=== PATIENT | female | born 1985 | race American Indian/Alaskan Native ===

== ENCOUNTER 2016-08-05 15:31 | Emergency (ER) | payer OTHER ==
[2016-08-05 15:46] VITALS: BMI 35.5
[2016-08-05] MEDS ORDERED: ceFAZolin 1 GM in Sodium Chloride 0.9% 100 ML IVPB STA (16:42)
[2016-08-05] MEDS ORDERED: Lactated Ringer's 1,000 ML IV SCH (16:45)
[2016-08-05 17:42] LABS: BASO % 0.2 % (0.0-2.0); EOS % 0.2 % (0.0-4.0); HEMATOCRIT 27.3 % (34.0-47.0); LYMPH # 1.4 K/uL (1.0-4.3); LYMPH % 15.2 % (20.0-40.0); MEAN CELL VOLUME 64.9 fl (81.0-99.0); MEAN CORPUSCULAR HEMOGLOBIN 19.6 pg (27.0-31.0); MEAN CORPUSCULAR HGB CONC 30.3 g/dL (33.0-37.0); MEAN PLATELET VOLUME 8.2 fl (7.2-11.7); MONO # 0.7 K/uL (0.0-0.8); MONO % 7.2 % (0.0-10.0); NEUT # 7.2 K/uL (1.8-7.0); NEUT % 77.2 % (50.0-75.0); NRBC % 0.2 % (0.0-0.0); RED CELL DISTRIBUTION WIDTH 19.7 % (11.5-14.5); WHITE BLOOD COUNT 9.3 K/uL (4.8-10.8)
[2016-08-05 17:47] LABS: ALB/GLOB RATIO 0.9 (1.0-2.1); ALKALINE PHOSPHATASE 97 U/L (38-126); ALT/SGPT 21 U/L (9-52); AMYLASE 91 U/L (30-110); AST/SGOT 36 U/L (14-36); BILIRUBIN,TOTAL 0.5 mg/dl (0.2-1.3); BLOOD UREA NITROGEN 8 mg/dl (7-17); CALCIUM 9.2 mg/dL (8.4-10.2); CARBON DIOXIDE 20 mmol/L (22-30); CHLORIDE 103 mmol/L (98-107); GFR AFRICAN-AMERICAN > 60; GLUCOSE,RANDOM 81 mg/dL (65-105); LIPASE 86 U/L (23-300); POTASSIUM 3.9 MMOL/L (3.6-5.0); SODIUM 138 mmol/l (132-148); TOTAL PROTEIN 7.8 G/DL (6.3-8.2)
[2016-08-05 18:07] LABS: RBC URINE 6 /hpf (0-3); URINE BILIRUBIN NEGATIVE (NEGATIVE); URINE BLOOD NEGATIVE (NEGATIVE); URINE COLOR YELLOW (YELLOW); URINE GLUCOSE (UA) NEG (Normal); URINE KETONE NEGATIVE (NEGATIVE); URINE LEUKOCYTE ESTERASE LARGE Leu/uL (Negative); URINE PROTEIN 30 mg/dL (NEGATIVE)
[2016-08-05 18:17] LABS: WBC URINE 4 /hpf (0-5)
[2016-08-05 18:18] LABS: URINE BACTERIA MOD (<OCC)
--- NOTE | 2016-08-10 15:54 | OBHP ---
Datetime: 08/05/2016 09:19 IP Adm Impression: , intrauterine ; No Active Labor; Intact Membranes IP Admit Plan: Observation/Evaluation; Discharge home Admit Comment, IP Provider: 30-year-old 002 at 34 weeks gestational age presented to OB ED com plaining of lower abdominal discomfort. Patient denies feeling any contractions, vaginal bleeding, le akage of fluids. Patient reports good movement. Patient with care in [place]. No [facility] records available for review. Per patient, patient states she was diagnosed with urinary tract in [facility] approximately 3 weeks ago. Patient reports not taking any antibiotics for this. Past medical history none Past surgical history none Medications vitamins No known drug allergies Surgical history full-term normal spontaneous vaginal delivery 2 Social history no tobacco, no drugs, no alcohol Physical exam: Deferred physical exam findings Assessment: 30-year-old 002 at 34 weeks gestational age with urinary tract infection. No evidence of pre term labor at this time. Maternal well-being and well-being reassuring at this time. Plan: Patient received IV antibiotics. Patient reports feeling better and without complaints at this lucretia e. Discharge patient to home. Patient given precautions. Patient will follow up with soumya rowell as already scheduled Pelvic Type - PN: Adequate Extremities - PN: Normal Abdomen - PN: Normal Back - PN: Normal Breast - PN: Normal Lungs - PN: Normal Heart - PN: Normal Thyroid - PN: Normal Neurologic - PN: Normal HEENT - PN: Normal General - PN: Normal Membranes, Provider: Intact Contraction Comments Provider: occasional Pool Provider: Negative Vital Signs Provider: Reviewed; Within Normal Limits IP Chief Complaint: Uterine contractions; Maternal discomfort Dilatation, Provider: 0 Effacement, Provider: 0 Station, Provider: -4 Genitourinary Exam: Normal DTRs - PN: Normal
== END 2016-08-05 20:15 | disposition home or self-care (01) ==
LOC: H.EROB2 15:31
DX: O23.43 Unspecified infection of urinary tract in pregnancy, third trimester (principal); Z3A.34 34 weeks gestation of pregnancy